=== PATIENT | female | born 1955 | race Caucasian/White ===

== ENCOUNTER → 2016-10-24 | Outpatient (CLI) | payer BC | LOC: MC.RAD 10-18 13:20 | DX: Z12.31 Encounter for screening mammogram for malignant neoplasm of breast (principal) ==

== ENCOUNTER → 2018-12-20 | Outpatient (CLI) | payer MEDICARE, OTHER | LOC: MC.RAD 09:56 | DX: Z12.31 Encounter for screening mammogram for malignant neoplasm of breast (principal) ==

== ENCOUNTER → 2021-04-23 | Outpatient (CLI) | payer MEDICARE, OTHER | LOC: MC.RAD 10:09 | DX: Z12.31 Encounter for screening mammogram for malignant neoplasm of breast (principal) ==

== ENCOUNTER → 2023-06-28 | Outpatient (CLI) | payer MEDICARE, OTHER | LOC: MC.RAD 12:31 | DX: Z12.31 Encounter for screening mammogram for malignant neoplasm of breast (principal) ==

== ENCOUNTER 2023-11-02 14:02 | Outpatient (CLI) | payer MEDICARE, OTHER ==
[~2023-11-02] VITALS: Ht 160 cm; Wt 46.7 kg
[2023-11-02 14:19] VITALS: BP 129/54; PULSE 66; TEMP 97.9
[2023-11-02] MEDS ORDERED: Romosozumab-aqqg 210 MG/2.34 ML 2-Syringe KIT SQ ONE (14:30)
[2023-11-02] MEDS ORDERED: OCUVITE1 TA1 PO (14:39)
[2023-11-02] MEDS ORDERED: B COMPLEX #11 TA1 PO (14:39)
[2023-11-02] MEDS ORDERED: SYNTHROID0.05 MG/TA PO (14:39)
[2023-11-02] MEDS ORDERED: CALCIUM 600MG+D1 TAB PO (14:40)
[2023-11-02] MEDS ORDERED: CENTRUM SILVER1 TAB PO (14:40)
[2023-11-02] MEDS ORDERED: CLARITIN 1010 MG/TAB PO (14:40)
[2023-11-02] MEDS ORDERED: THE MEDICINE S200 M2 PO (14:46)
[2023-11-02] MEDS ORDERED: VITAMIN D31000 I1 PO (14:46)
[2023-11-02] MEDS ORDERED: VITAMIN C500 MG PO (14:46)
[2023-11-02] MEDS ORDERED: K2-4545 MCG PO (14:47)
[2023-11-02] MEDS ORDERED: ELDERBERRY PO (14:47)
[2023-11-02] MEDS ORDERED: EVENITY (2210 MG/2.3 SQ (14:48)
--- NOTE | 2023-11-02 14:48 | NUR ---
Pt tolerated evenity without issue. She exits dept with steady gait. She is free of complaints at departure.
== END 2023-11-02 14:48 | disposition home or self-care (01) ==
LOC: EUO 14:02
DX: M81.0 Age-related osteoporosis without current pathological fracture (principal)
CPT/HCPCS: J3111

== ENCOUNTER 2023-12-28 12:34 | Outpatient (CLI) | payer MEDICARE, OTHER ==
[~2023-12-28] VITALS: Ht 160 cm; Wt 46.0 kg
[~2023-12-28 12:34] MED LIST: B COMPLEX #11 TA1 PO; CALCIUM 600MG+D1 TAB PO; CENTRUM SILVER1 TAB PO; CLARITIN 1010 MG/TAB PO; ELDERBERRY PO; EVENITY (2210 MG/2.3 SQ; K2-4545 MCG PO; OCUVITE1 TA1 PO; SYNTHROID0.05 MG/TA PO; THE MEDICINE S200 M2 PO; VITAMIN C500 MG PO; VITAMIN D31000 I1 PO
[2023-12-28 12:49] VITALS: BP 107/53; PULSE 73; TEMP 97.3
[2023-12-28] MEDS ORDERED: Romosozumab-aqqg 210 MG/2.34 ML 2-Syringe KIT SQ ONE (13:00)
--- NOTE | 2023-12-28 13:10 | NUR ---
Pt tolerated evenity without issue. She exits dept with steady gait. Free of complaints at discharge.
== END 2023-12-28 13:10 | disposition home or self-care (01) ==
LOC: EUO 12:34
DX: M81.0 Age-related osteoporosis without current pathological fracture (principal)
CPT/HCPCS: J3111

== ENCOUNTER 2024-02-22 12:42 | Outpatient (CLI) | payer MEDICARE, OTHER ==
[~2024-02-22] VITALS: Ht 160 cm; Wt 46.9 kg
[2024-02-22] MEDS ORDERED: Romosozumab-aqqg 210 MG/2.34 ML 2-Syringe KIT SQ ONE (13:00)
[2024-02-22 13:13] VITALS: BP 127/46; PULSE 74; TEMP 98.2
--- NOTE | 2024-02-22 13:35 | NUR ---
Pt tolerated injections without issue. She exits dept with steady gait. She is free of complaints at discharge.
== END 2024-02-22 13:35 | disposition home or self-care (01) ==
LOC: EUO 12:42
DX: M81.0 Age-related osteoporosis without current pathological fracture (principal)
CPT/HCPCS: J3111